=== PATIENT | female | born 1990 | race Caucasian/White ===

== ENCOUNTER 2025-03-14 03:53 | Emergency (ER) | payer OTHER, SELFPAY ==
[2025-03-14] VITALS (7 sets, daily range): BP systolic 118–144; BP diastolic 83–100; PULSE 80–83; BMI 30.2
--- NOTE | 2025-03-14 04:56 | ED.GENMED ---
History of Present Illness
<Carmella Pichardo MD, Resident - Last Filed: 03/14/25 06:51>
General
Chief Complaint: Anxiety
Source: patient
Time Seen by Provider: 03/14/25 04:18
History of Present Illness
History of Present Illness:
34-year-old female with no significant past medical history presents to the ER for heart palpitations and dizziness. She woke up from a nightmare at 3 AM and felt like her heart was racing and dizzy. Shortly after, she went to use the bathroom and
had 2 episodes of diarrhea and 1 episode of vomiting. She tried to go back to bed however her heart was still racing and she felt dizzy while laying down so she came to the ER for evaluation. Since being in the ER, her dizziness and heart
palpitations have gone away. She still feels like she has an upset stomach. She did not eat anything atypical the night before. She has no history of anxiety or panic attacks. Her is going on a trip to [place] without her however this is
not atypical as he has taken trips without her in the past. She has never experienced anything like this before. She denies any chest pain, shortness of breath, hematemesis, hematochezia, melena. She denies any sick contacts with similar symptoms.
Past History
<Carmella Pichardo MD, Resident - Last Filed: 03/14/25 06:51>
Past History
ED Past Medical History: None; Negative Asthma, HTN, Hypercholesterolemia or NIDDM
ED Past Surgical History: None
Social History
Tobacco: Vaping
Alcohol: Occasional
Drug: Marijuana
Personal: Single
Living: alone
Family History
Family History: Other
Review of Systems
<Carmella Pichardo MD, Resident - Last Filed: 03/14/25 06:51>
Review of Systems
Allergies reviewed?: Yes
Constitutional: Reports no symptoms
EENT: Reports no symptoms
Respiratory: Reports no symptoms
Cardiac: Reports no symptoms
ABD/GI: Reports nausea, vomiting and diarrhea
: Reports no symptoms
Musculoskeletal: Reports no symptoms
Skin: Reports no symptoms
Neurological: Reports dizzy
Endocrine: Reports no symptoms
Hematologic/Lymphatic: Reports no symptoms
Psychiatric: Reports no symptoms
Phy Exam
<Carmella Pichardo MD, Resident - Last Filed: 03/14/25 06:51>
Physical Exam
Physical Exam:
General: Anxious but nontoxic
Head: Atraumatic
Cardiac: Regular S1, S2, no murmurs
Respiratory: Clear breath sounds bilaterally
Abdomen: Soft, nontender, nondistended, normal bowel sounds
Extremities: No peripheral edema
General Physical Exam
General Presentation: well appearing
General age: appears stated age
General Skin: warm and dry
General Mental: alert
General Hydration: appears well hydrated
Course
<Carmella Pichardo MD, Resident - Last Filed: 03/14/25 06:51>
Orders/Labs/Results
Orders:
Orders
03/14/25 04:02
ECG [Electrocardiogram (*1)] Urgent
Reason for Study: Bradycardia / Tachycardia
03/14/25 04:03
EKG- Treatment ONCE
03/14/25 04:46
Orthostatic VS- Treatment ONCE
03/14/25 04:57
Loperamide [Imodium] 2 mg PO NOW STA
Vital Signs
Initial and Last Documented VS:
Initial Vital Signs
Temp Pulse Resp BP Pulse Ox
98.5 F 94 18 144/100 98
03/14/25 03:55 03/14/25 03:55 03/14/25 03:55 03/14/25 03:55 03/14/25 03:55
Last Documented Vital Signs
Temp Pulse Resp BP Pulse Ox
98.5 F 86 17 118/83 98
03/14/25 03:55 03/14/25 06:00 03/14/25 06:00 03/14/25 06:00 03/14/25 04:57
<Radha Chowdhury DO - Last Filed: 03/14/25 05:39>
Orders/Labs/Results
Orders:
Orders
03/14/25 04:02
ECG [Electrocardiogram (*1)] Urgent
Reason for Study: Bradycardia / Tachycardia
03/14/25 04:03
EKG- Treatment ONCE
03/14/25 04:46
Orthostatic VS- Treatment ONCE
03/14/25 04:57
Loperamide [Imodium] 2 mg PO NOW STA
Vital Signs
Initial and Last Documented VS:
Initial Vital Signs
Temp Pulse Resp BP Pulse Ox
98.5 F 94 18 144/100 98
03/14/25 03:55 03/14/25 03:55 03/14/25 03:55 03/14/25 03:55 03/14/25 03:55
Last Documented Vital Signs
Temp Pulse Resp BP Pulse Ox
98.5 F 86 17 118/83 98
03/14/25 03:55 03/14/25 06:00 03/14/25 06:00 03/14/25 06:00 03/14/25 04:57
<Carmella Pichardo MD, Resident - Last Filed: 03/14/25 06:51>
MDM/Problems Addressed
Differential Diagnosis Includes:
Anxiety, panic attack, gastritis, gastroenteritis, diverticulitis, cardiac arrhythmia, vertigo, dehydration
MDM/Problems Addressed:
EKG unremarkable for acute etiology. As patient has started to have diarrhea here in the ER, highly suspect onset of a GI bug. Will do orthostatics to evaluate for orthostatic hypotension. One dose of Imodium. Will observe on the monitor for a few
hours and if no abnormal cardiac event, okay to discharge with recommendations to follow-up with PCP for further evaluation.
Orthostatics are negative, telemetry is unremarkable. Likely the start of a gastroenteritis. Will discharge with instructions for clear liquid diet for today, good PO intake, rest and zofran.
<Carmella Pichardo MD, Resident - Last Filed: 03/14/25 06:51>
*Pulse Oximetry
SaO2: 98
Patient hypoxic: no
*EKG
Interpreted by ED Provider?: Yes
Interpretation: normal
*Nematology Teacher Interpretation
Rate: normal
Interpretation: normal
Rhythm: sinus
*Critical Care Note
Total Time (30-74mins, 75-104mins- exclusive of procedures): Not Applicable
Data Reviewed
Review of Other/Old Records Reveals: Labs (prior troponin <0.012 on 08/24/21) and Radiology Studies (Chest x-ray 09/03/21 no radiographic evidence for acute cardiopulmonary disease)
Source: patient
ED Attending Note
<Carmella Pichardo MD, Resident - Last Filed: 03/14/25 06:51>
-
Portions of this chart may have been created with voice recognition software.� Occasional wrong word or��sound alike� substitutions may have occurred due to the inherent limitations of voice recognition software.
<Radha Chowdhury DO - Last Filed: 03/14/25 05:39>
ED Attending Note
Patient seen and examined by attending physician: Yes
I performed a history and physical exam of patient and discussed management with resident, I reviewed resident's note and agree with documented findings and plan of care.: Yes
ED Attending Note:
34-year-old woman with no significant past medical history awoke abruptly tonight feeling that she awoke from a nightmare and awoke with palpitations feeling that her heart was beating rapidly along with some dizziness. She felt that she was going
to pass out while lying supine. Shortly after waking and developing palpitations she then developed an onset of diarrhea and while passing a few loose nonbloody stools she became nauseous and vomited. She denies abdominal pain or chest pain, no
diaphoresis. No syncope.
Palpitations seem to persist prompting ED evaluation.
Since arrival to the ED however she is feeling markedly improved. No further palpitations. No further dizziness.
Nausea has resolved.
She has passed 1 loose stool since arrival to the ED. She continues to deny abdominal pain.
No recent travel nor recent antibiotic use.
No close contacts with similar symptoms.
34-year-old woman appears her stated age, bright and alert, pleasant, appears in no acute distress.
HEENT: Oral mucosa is moist. Anicteric.
Heart is regular rate and rhythm.
Lungs are clear to auscultation.
Abdomen is soft, nondistended, nontender. Normoactive bowel sounds.
EKG shows normal sinus rhythm. Normal axis, normal intervals. No acute ST-T wave abnormalities.
Monitor shows normal sinus rhythm as well.
Concern for potential tacky arrhythmia versus acute gastroenteritis either foodborne versus viral. Acute vertigo is also a consideration.
Overall well in appearance. Appears euvolemic. Without a fever and abdomen is soft without appreciable tenderness.
Will trial oral fluids
Will give a dose of Imodium for diarrhea.
Will continue court monitor.
will check orthostatic VS.
At this point no indication for laboratory studies nor imaging.
Discharge Plan
Departure
Patient Disposition: Home (Routine Discharge)
Date of Disposition: 03/14/25
Time of Disposition: 06:27
Patient with high blood pressure during this ER visit?: Yes
Discharge Problem:
Gastroenteritis
Instructions: Viral gastroenteritis in adults
Prescriptions:
New
ondansetron HCl 4 mg tablet
4 mg PO Q8H PRN (Reason: nausea and vomiting) 3 Days Qty: 20 0RF
Referrals:
UNKNOWN - PT DOES,NOT KNOW [Family Provider]
Activity Restrictions/Additional Instructions:
Please follow up with your PCP for ongoing symptoms. Please stick to clear liquids today.
Interventions
Interventions:
*Risk Screen - Suicide Last Done: 03/14/25 03:55
*General Assessment Last Done: 03/14/25 04:13
*Neglect/Abuse Screening Last Done: 03/14/25 03:55
*ED- Fall Risk Assessment Last Done: 03/14/25 04:12
*ED COVID-19 Vaccine History Last Done: 03/14/25 04:12
*ED Influenza Vaccine History Last Done: 03/14/25 04:12
*Nursing Disposition Last Done: 03/14/25 06:35
ED- Cardiac Assessment Last Done: 03/14/25 04:15
ED-Psychological Assessment Last Done: 03/14/25 04:15
ED- Pulmonary Assessment Last Done: 03/14/25 04:15
Discharge Date and Time
Discharge Date/Time: 03/14/25 06:35
Print Language: [email or web address]
[2025-03-14] MEDS: IMODIUM 2 MG PO (05:11)
== END 2025-03-14 06:35 | disposition home or self-care (01) ==
LOC: EMR 03:53
PROVIDERS: EMERGENCY PHYSICIAN Emergency Medicine
DX: K52.9 Noninfective gastroenteritis and colitis, unspecified (principal); F17.290 Nicotine dependence, other tobacco product, uncomplicated
CPT/HCPCS: 99283; 93005